=== PATIENT | male | born 1970 | race Caucasian/White ===

== ENCOUNTER 2023-11-14 08:12 | Emergency (ER) | payer OTHER, SELFPAY ==
[2023-11-14 08:26] VITALS: BP 149/106
[2023-11-14 08:34] VITALS: BMI 41.2
[2023-11-14 08:54] LABS: % Basophils 0.6 % (0-2); % Eosinophils 4.6 % (0-6); % Immature Granulocytes 0.2 % (0-0.5); % Lymphocytes 25.4 % (20.5-51.1); % Neutrophils 62.2 % (42.2-75.2); Absolute Basophils 0.1 10^3/uL (0-0.2); Absolute Eosinophils 0.4 10^3/uL (0-0.7); Absolute Lymphocytes 2.1 10^3/uL (1.2-3.4); Absolute Monocytes 0.6 10^3/uL (0.1-0.6); Absolute Neutrophils 5.1 10^3/uL (1.4-6.5); Hematocrit 44.6 % (39.0-52.0); Hemoglobin 15.5 g/dL (13.0-18.0); Mean Corp Hgb Conc. 34.8 g/dL (33.0-37.0); Mean Corpuscular Volume 83.4 fL (80.0-94.0); Nucleated Red Blood Cells % 0 % (-); Platelet Count 240 10^3/uL (130-400); Red Blood Cell Count 5.35 10^6/uL (4.70-6.10); Red Cell Dist. Width 13.2 % (11.5-14.5); White Blood Cell Count 8.3 10^3/uL (4.8-10.8)
[2023-11-14 09:00] VITALS: BP 161/91
[2023-11-14] MEDS: CARDIZEM 10 MG IV (09:03)
[2023-11-14 09:05] LABS: APTT 26.9 Sec (23.4-35.0); INR 1.03; PT 13.5 Sec (11.4-14.6)
--- NOTE | 2023-11-14 09:06 | ED.GENMED ---
History of Present Illness
General
Chief Complaint: Heart Rate Problem
Source: patient
Exam Limitations: none
Time Seen by Provider: 11/14/23 08:34
Travel History
Have you had any contact with someone who has COVID-19?: No
Do you have any symptoms of coronavirus? Fever > 100 degrees, chills, cough, shortness of breath, sore throat, loss of taste or smell, muscle aches, or headache?: No
History of Present Illness
History of Present Illness:
52-year-old male complaining of heart racing dizziness started at the gym this morning. Patient is confident that started this morning. No chest pain no pleuritic pain no history of same. Symptoms been ongoing the last hour plus
Past History
Past History
ED Past Medical History: None
ED Past Surgical History: Appendectomy, Orthopedic and Other (Deviated septum the)
Social History
Tobacco: Non-smoker
Alcohol: Occasional
Drug: None
Personal:
Living: with family
Employment: Employed
Review of Systems
Review of Systems
All Other Systems: Not applicable
Constitutional: Denies fever
Respiratory: Reports no symptoms
Cardiac: Denies chest pain
Phy Exam
Physical Exam
Physical Exam:
GENERAL: Alert and oriented in no apparent distress
EYE: Orbits normal.
NECK: Supple, no thyroid palpable
ENT: Pharynx without erythema
CARDIAC: Irregular irregular. Tachycardic.
LUNGS: Clear breath sounds,normal
ABDOMEN: Soft, without focal tenderness or distention. Elevated BMI
NEUROLOGICAL: Alert and oriented , grossly non-focal
SKIN: Warm and dry, no rash or lesion, no discoloration, skin intact.
MUSCULOSKELETAL: No edema,no deformity.Good color
PSYCH: Normal and appropriate interaction.
Course
Orders/Labs/Results
Orders:
Orders
11/14/23 08:16
Electrocardiogram (*1) Urgent
Reason for Study: Vertigo / Dizzy
EKG- Treatment ONCE
11/14/23 08:43
Complete Blood Count/With Diff Urgent
Comprehensive Metabolic Panel Urgent
D-Dimer Urgent
Protime/PTT Urgent
TSH Reflex To Free T4 Urgent
Comment: ADD ON
Troponin I Urgent
11/14/23 08:54
Add On- LAB Urgent
Tests Added?: tsh reflex t4
11/14/23 08:55
Diltiazem HCl [Cardizem] 10 mg IV NOW STA
11/14/23 12:08
Apixaban [Eliquis] 5 mg PO NOW STA
Diltiazem Extended Release [Cardizem Cd] 180 mg PO NOW STA
11/14/23 08:43
11/14/23 08:43
Vital Signs
Initial and Last Documented VS:
Initial Vital Signs
Temp Pulse Resp Pulse Ox
98.5 F 98 18 98
11/14/23 08:13 11/14/23 08:13 11/14/23 08:13 11/14/23 08:13
Last Documented Vital Signs
Temp Pulse Resp BP Pulse Ox
98.5 F 89 16 154/99 97
11/14/23 08:13 11/14/23 12:00 11/14/23 12:00 11/14/23 11:00 11/14/23 12:00
*Pulse Oximetry
Patient hypoxic: no
*EKG
Interpreted by ED Provider?: Yes
Interpretation: abnormal
Comparison EKG: changes noted
Heart Rate: 96
Rate: normal
Rhythm: a-fib
[place]: normal axis
Interval: normal interval
QRS Pattern: normal QRS
Ischemia: non-specific ST changes
*Pharmacy Operations Coordinator Interpretation
Rate: tachycardiac
Interpretation: abnormal
Heart Rate: 110
Rhythm: a-fib
*Critical Care Note
Total Time (30-74mins, 75-104mins- exclusive of procedures): 15
Update Note
Update Note:
Patient has remained medically stable and nontoxic. Heart rate in the 80s to 90s. Discussed cardioversion versus rate control anticoagulation and follow-up. Cardiology informed. Patient was offered admission for [facility] cardioversion tomorrow with a
medically very reasonable to do outpatient rate control and anticoagulation with follow-up with cardiology. Patient prefers this approach. He will be discharged on Cardizem CD. Also anticoagulation. Patient has no contraindications to
anticoagulation.
ED Attending Note
-
Portions of this chart may have been created with voice recognition software.� Occasional wrong word or��sound alike� substitutions may have occurred due to the inherent limitations of voice recognition software.
Discharge Plan
Departure
Patient Disposition: Home (Routine Discharge)
Date of Disposition: 11/14/23
Time of Disposition: 12:09
Patient with high blood pressure during this ER visit?: Yes
Discharge Problem:
Atrial fibrillation/RVR
Instructions: Atrial Fibrillation (DC), Going Home on Blood Thinners , BLOOD PRESSURE
Prescriptions:
New
diltiazem HCl [Cardizem CD] 180 mg capsule,extended release 24hr
180 mg PO DAILY Qty: 30 0RF
Eliquis 5 mg tablet
5 mg PO BID Qty: 60 0RF
No Action
albuterol sulfate 90 mcg/actuation HFA aerosol inhaler
2 puff INHALATION Q6HPRN PRN (Reason: shortness of breath)
B Complex Plus Vitamin C [id number] mg Capsule
1 cap PO DAILY
cholecalciferol (vitamin D3) [Vitamin D3] 25 mcg (1,000 unit) Tablet
25 mcg PO DAILY
Referrals:
Darren Campos MD [Active] - Follow up in 5-7 days
Eliazar Villeda MD [Family Provider] -
Activity Restrictions/Additional Instructions:
Call the cardiology office when you leave the ER for close follow-up early next week. Let them know we talked to the covering bingo worker
Interventions
Interventions:
*Risk Screen - Suicide Last Done: 11/14/23 08:37
*General Assessment Last Done: 11/14/23 08:13
*Neglect/Abuse Screening Last Done: 11/14/23 08:37
ED- Fall Risk Assessment Last Done: 11/14/23 08:37
*ED COVID-19 Vaccine History Last Done: 11/14/23 08:13
ED- Cardiac Assessment Last Done: 11/14/23 08:37
ED- Pulmonary Assessment Last Done: 11/14/23 08:37
[2023-11-14 09:08] LABS: D-Dimer 0.31 ug/mlFEU (0.00-0.50)
[2023-11-14 09:15] LABS: ALT (SGPT) 43 U/L (0-50); AST (SGOT) 39 U/L (17-59); Albumin 4.3 g/dl (3.5-5.0); Alkaline Phosphatase 90 U/L (38-126); Blood Urea Nitrogen 19 mg/dl (9-20); Calcium 10.2 mg/dl (8.4-10.2); Carbon Dioxide 29 mmol/L (22-30); Chloride 104 mmol/L (98-107); Estimated Creatinine Clearance > 125 ml/min; Glucose 92 mg/dl (70-99); Sodium 137 mmol/L (135-145); Total Bilirubin 0.7 mg/dl (0.2-1.3); Total Protein 6.9 g/dl (6.3-8.2); eGFR > 60.00
[2023-11-14 09:20] LABS: Potassium 4.4 mmol/L (3.5-5.1); Troponin I < 0.012 ng/ml
[2023-11-14 10:00] VITALS: BP 136/90
[2023-11-14 11:00] VITALS: BP 154/99
[2023-11-14 12:20] VITALS: BP 147/103
[2023-11-14] MEDS: ELIQUIS 5 MG PO (12:20)
[2023-11-14] MEDS: CARDIZEM CD 180 MG PO (12:20)
== END 2023-11-14 12:32 | disposition home or self-care (01) ==
LOC: EMR 08:12
PROVIDERS: EMERGENCY PHYSICIAN Emergency Medicine; FAMILY PHYSICIAN Family Medicine
DX: I48.91 Unspecified atrial fibrillation (principal); R42 Dizziness and giddiness; R07.9 Chest pain, unspecified; Z79.01 Long term (current) use of anticoagulants
CPT/HCPCS: 99285; 96374; 80053; 84443; 84484; 85025; 85379; 85610; 85730; 93005

== ENCOUNTER → 2023-11-21 07:02 | Day surgery (SDC) | payer OTHER, SELFPAY | LOC: CATH 07:02 | PROVIDERS: ATTENDING PHYSICIAN Internal Medicine Cardiovascular Disease; FAMILY PHYSICIAN Family Medicine | DX: I48.19 Other persistent atrial fibrillation (principal); I08.0 Rheumatic disorders of both mitral and aortic valves; Z79.01 Long term (current) use of anticoagulants | CPT/HCPCS: 93312; 93320; 93325; 92960; 93005 ==